=== PATIENT | male | born 1995 | race Caucasian/White ===

== ENCOUNTER 2017-07-24 23:40 | Emergency (ER) | payer OTHER ==
[~2017-07-24] VITALS: Ht 167.6 cm; Wt 71.6 kg
[~2017-07-24 23:40] MED LIST: no home meds
[2017-07-25] MEDS ORDERED: SEPTRA4001 PO (01:07)
[2017-07-25 01:30] VITALS: BP 147/99
== END 2017-07-25 01:30 | disposition home or self-care (01) | DRG 603 ==
LOC: ED 23:40
DX: L03.113 Cellulitis of right upper limb (principal); R22.31 Localized swelling, mass and lump, right upper limb